=== PATIENT | male | born 1965 | race Native Hawaiian/Other Pacific Islander ===

== ENCOUNTER 2018-09-12 10:26 | Outpatient (CLI) | payer OTHER | END 2018-09-12 20:52 | disposition home or self-care (01) | LOC: RAD 10:26 | DX: M54.2 Cervicalgia (principal); M25.519 Pain in unspecified shoulder; M54.6 Pain in thoracic spine; M79.602 Pain in left arm; M62.838 Other muscle spasm; M25.512 Pain in left shoulder; M54.5 Low back pain; I10 Essential (primary) hypertension; E11.9 Type 2 diabetes mellitus without complications ==

== ENCOUNTER 2020-03-22 16:33 | Outpatient (CLI) | payer OTHER | END 2020-03-22 23:05 | disposition home or self-care (01) | LOC: CT 16:33 | DX: R31.9 Hematuria, unspecified (principal); R10.31 Right lower quadrant pain; R10.2 Pelvic and perineal pain; E11.9 Type 2 diabetes mellitus without complications ==

== ENCOUNTER 2020-04-05 07:55 | Outpatient (CLI) | payer OTHER | END 2020-04-05 20:31 | disposition home or self-care (01) | LOC: CT 07:55 | DX: R91.1 Solitary pulmonary nodule (principal); D35.00 Benign neoplasm of unspecified adrenal gland | CPT/HCPCS: 36415; 82565; 84520; Q9963 ==

== ENCOUNTER 2020-08-20 14:50 | Outpatient (CLI) | payer OTHER | END 2020-08-20 22:10 | disposition home or self-care (01) | LOC: INF 14:50 | PROVIDERS: ATTEND Internal Medicine Endocrinology, Diabetes & Metabolism | DX: Z23 Encounter for immunization (principal) | CPT/HCPCS: 96372 ==

== ENCOUNTER 2020-09-17 14:36 | Outpatient (CLI) | payer OTHER | END 2020-09-17 22:52 | disposition home or self-care (01) | LOC: INF 14:36 | PROVIDERS: ATTEND Internal Medicine Endocrinology, Diabetes & Metabolism | DX: Z23 Encounter for immunization (principal) | CPT/HCPCS: 96372 ==

== ENCOUNTER 2021-01-10 15:45 | Outpatient (CLI) | payer OTHER | END 2021-01-10 20:12 | disposition home or self-care (01) | LOC: CT 15:45 | PROVIDERS: ATTEND Nurse Practitioner Family | DX: R91.1 Solitary pulmonary nodule (principal); D35.00 Benign neoplasm of unspecified adrenal gland; R91.8 Other nonspecific abnormal finding of lung field | CPT/HCPCS: 36415; 82565; 84520; Q9963 ==

== ENCOUNTER 2022-04-24 07:56 | Outpatient (CLI) | payer OTHER | END 2022-04-24 22:07 | disposition home or self-care (01) | LOC: CT 07:56 | PROVIDERS: ATTEND Nurse Practitioner Family | DX: R97.8 Other abnormal tumor markers (principal); D35.00 Benign neoplasm of unspecified adrenal gland; R91.8 Other nonspecific abnormal finding of lung field | CPT/HCPCS: 36415; 82565; 84520; Q9963 ==

== ENCOUNTER 2022-07-22 10:26 | Day surgery (SDC) | payer OTHER | END 2022-07-22 13:55 | disposition home or self-care (01) | LOC: OR 10:26 | PROVIDERS: ATTEND Internal Medicine Gastroenterology | PROC: 0DBH8ZZ Excision of Cecum, Via Natural or Artificial Opening Endoscopic (ICD-10-PCS; principal; 2022-07-22) | DX: D12.0 Benign neoplasm of cecum (principal); K63.5 Polyp of colon; K57.30 Diverticulosis of large intestine without perforation or abscess without bleeding; K64.8 Other hemorrhoids; Z12.11 Encounter for screening for malignant neoplasm of colon | CPT/HCPCS: J2704; J7120 ==

== ENCOUNTER 2023-01-19 14:40 | Outpatient (CLI) | payer OTHER | END 2023-01-19 19:23 | disposition home or self-care (01) | LOC: RAD 14:40 | PROVIDERS: ATTEND Nurse Practitioner Family | DX: M54.59 Other low back pain (principal) ==

== ENCOUNTER 2023-02-18 12:12 | Outpatient (CLI) | payer OTHER | END 2023-02-18 19:23 | disposition home or self-care (01) | LOC: MRI 12:12 | PROVIDERS: ATTEND Nurse Practitioner Family | DX: I10 Essential (primary) hypertension (principal); M47.816 Spondylosis without myelopathy or radiculopathy, lumbar region; M54.16 Radiculopathy, lumbar region; R20.2 Paresthesia of skin; M62.838 Other muscle spasm; M54.10 Radiculopathy, site unspecified; M54.89 Other dorsalgia ==